=== PATIENT | male | born 1990 | race Caucasian/White ===

== ENCOUNTER 2017-12-11 09:24 | Emergency (ER) | payer SELFPAY ==
[~2017-12-11] VITALS: Ht 172.7 cm; Wt 136.8 kg
[2017-12-11 09:30] VITALS: BP 135/79; PULSE 83; TEMP 97.7
[2017-12-11] MEDS ORDERED: PROAIR HFA0.09 MG/AC IH (09:34)
== END 2017-12-11 11:18 | disposition home or self-care (01) ==
LOC: COL.ER 09:24
DX: S92.351A Displaced fracture of fifth metatarsal bone, right foot, initial encounter for closed fracture (principal); J45.909 Unspecified asthma, uncomplicated; W10.9XXA Fall (on) (from) unspecified stairs and steps, initial encounter; Y92.009 Unspecified place in unspecified non-institutional (private) residence as the place of occurrence of the external cause

== ENCOUNTER 2018-10-02 20:00 | Emergency (ER) | payer SELFPAY ==
[~2018-10-02] VITALS: Ht 175.3 cm; Wt 131.8 kg
[~2018-10-02 20:00] MED LIST: PROAIR HFA0.09 MG/AC IH
[2018-10-02 20:04] VITALS: TEMP 97.8
[2018-10-02] MEDS ORDERED: PREDNISONE20 MG PO (21:33)
[2018-10-02 21:42] VITALS: BP 145/94; PULSE 109
== END 2018-10-02 21:42 | disposition home or self-care (01) ==
LOC: COL.ER 20:00
DX: J44.1 Chronic obstructive pulmonary disease with (acute) exacerbation (principal); Z87.891 Personal history of nicotine dependence
CPT/HCPCS: J7512